=== PATIENT | male | born 1960 | race Caucasian/White ===

== ENCOUNTER 2018-07-19 16:21 | Emergency (ER) | payer BC ==
[2018-07-19 16:48] VITALS: BP 149/84
--- NOTE | 2018-07-19 16:55 | UC ---
FLU HPI - HPI Summary HPI Summary: 58-year-old male presents with sudden onset of general malaise, fatigue, body aches, fever, chills, nasal congestion, sore throat, nonproductive cough 4 days ago. Denies ear pain, dysphagia, chest pain, shortness of breath, abdominal pain, nausea, vomiting, or diarrhea. - History of Current Complaint Chief Complaint: UCGeneralIllness Stated Complaint: COUGH,BODY ACHES,CONGESTION,DIZZY Time Seen by Provider: 07/19/18 16:42 Hx Obtained From: Patient Pain Intensity: 8 - Allergy/Home Medications Allergies/Adverse Reactions: Allergies Allergy/AdvReac Type Severity Reaction Status Date / Time No Known Allergies Allergy Verified 07/19/18 16:48 Home Medications: Home Medications Bp Medication DAILY 07/19/18 [History] PMH/Surg Hx/FS Hx/Imm Hx Cardiovascular History: Hypertension - Surgical History Surgical History: Yes Surgery Procedure, Year, and Place: [place] as child. T & A - Family History Known Family History: Positive: Non-Contributory - Social History Occupation: Employed Full-time Lives: With Family Alcohol Use: Weekly Substance Use Type: None Smoking Status (MU): Never Smoked Tobacco Review of Systems All Other Systems Reviewed And Are Negative: Yes Constitutional: Positive: Fever, Chills, Fatigue Skin: Negative: Rash Eyes: Negative: Drainage, Eye Redness ENT: Positive: Sore Throat, Nasal Discharge, Sinus Congestion. Negative: Ear Ache, Sinus Pain/Tenderness Respiratory: Positive: Cough. Negative: Shortness Of Breath Cardiovascular: Negative: Palpitations, Chest Pain Gastrointestinal: Negative: Abdominal Pain, Vomiting, Diarrhea, Nausea Genitourinary: Positive: Negative Musculoskeletal: Positive: Negative Neurological: Positive: Negative Is Patient Immunocompromised?: No Physical Exam - Summary Physical Exam Summary: GENERAL APPEARANCE: Well developed, well nourished, alert and cooperative, and appears to be in no acute distress. EYES: Conjunctiva clear. No drainage. Vision is grossly intact. EARS: External auditory canals and tympanic membranes clear, hearing grossly intact. NOSE: Mild nasal congestion with clear discharge. THROAT: Pharyngeal erythema. Surgically absent tonsils. Oral cavity normal. Teeth and gingiva in good general condition. NECK: Neck supple, non-tender without lymphadenopathy. CARDIAC: Normal S1 and S2. No S3, S4 or murmurs. Rhythm is regular. There is no peripheral edema, cyanosis or pallor. Extremities are warm and well perfused. Capillary refill is less than 2 seconds. Peripheral pulses intact. LUNGS: Clear to auscultation without rales, rhonchi, wheezing or diminished breath sounds. Non-productive cough. ABDOMEN: Positive bowel sounds. Soft, nondistended, nontender. No guarding or rebound. No masses or hepatosplenomegally. MUSKULOSKELETAL: ROM intact to all extremities. No joint erythema or tenderness. Normal muscular development. Normal gait. SKIN: Skin normal color, texture and turgor with no lesions or eruptions. Triage Information Reviewed: Yes Vital Signs: Initial Vital Signs Temp 99.6 F 07/19/18 16:45 Pulse 75 07/19/18 16:45 Resp 17 07/19/18 16:45 BP 149/84 07/19/18 16:45 Pulse Ox 98 07/19/18 16:45 Vital Signs Reviewed: Yes Flu Course/Dx - Course Course Of Treatment: 58-year-old male presents with sudden onset of general malaise, fatigue, body aches, fever, chills, nasal congestion, sore throat, nonproductive cough 4 days ago. Denies ear pain, dysphagia, chest pain, shortness of breath, abdominal pain, nausea, vomiting, or diarrhea. Afebrile. Mildly hypertensive otherwise vital signs stable. Exam reveals an adult male in no acute distress with mild nasal congestion, clear nasal discharge, pharyngeal erythema, surgically absent tonsils, no cervical lymphadenopathy, clear bilateral breath sounds, and a nonproductive cough. Rapid flu test was positive for influenza A. Recommending symptomatic treatment including Tessalon Perles 1 capsule every 8 hours as needed for cough. He is to follow-up with his primary care provider if symptoms do not improve. Anticipatory guidance and warning symptoms were reviewed with the patient. Verbalizes understanding and agrees with plan of care. - Differential Dx/Diagnosis Differential Diagnosis/HQI/PQRI: Bronchitis, Influenza, Pneumonia, Upper Respiratory Infection Provider Diagnosis: Influenza A Discharge - Sign-Out/Discharge Documenting (check all that apply): Patient Departure All imaging exams completed and their final reports reviewed: No Studies - Discharge Plan Condition: Stable Disposition: HOME Prescriptions: Benzonatate CAP* [Tessalon 100 MG CAP*] 100 mg PO TID PRN #30 cap PRN Reason: Cough Patient Education Materials: Influenza (ED) Referrals: Demian Lozoya DO [Primary Care Provider] - Additional Instructions: Your flu test in the clinic today was positive for influenza A. Get plenty of rest. Drink plenty of fluids to avoid dehydration especially if you are running any fever. Take over the counter acetaminophen (Tylenol) or ibuprofen (Advil, Motrin) according to directions as needed for pain or fever. Take Tessalon Perles 1 cap every 8 hours as needed for cough. Use salt water gargles several times a day if you have a sore throat. You may also use Chloraseptic spray or Cepacol lonzenges according to directions which contain a numbing medication and can provide some temporary relief from your sore throat. Follow up with your primary care provider in 7 days if symptoms persist. Seek immediate medical attention in the emergency room if you have fever greater than 100.5 F despite taking acetaminophen or ibuprofen, have chest pain , difficulty breathing, are unable to swallow, or have any worsening of symptoms. - Billing Disposition and Condition Condition: STABLE Disposition: Home - Attestation Statements Provider Attestation: Per institutional requirements, I have reviewed the chart, however, I was not consulted specifically or made aware of this patient by the midlevel provider. I did not personally evaluate, interact with , or disposition this patient.
[2018-07-19 17:01] LABS: Influenza A Molecular POSITIVE (Negative)
== END 2018-07-19 17:10 | disposition home or self-care (01) ==
LOC: UCCORT 16:21
DX: J10.1 Influenza due to other identified influenza virus with other respiratory manifestations (principal); I10 Essential (primary) hypertension; R42 Dizziness and giddiness
CPT/HCPCS: 99202; G0463